=== PATIENT | male | born 1985 | race Two or more races ===

== ENCOUNTER 2020-04-20 09:06 | Inpatient (IN) | payer MEDICAID, OTHER ==
[~2020-04-20] VITALS: Ht 177.8 cm; Wt 97.3 kg
[2020-04-20] MEDS ORDERED: DOXYCYCLINE 100 MG TAB/CAP PO ONE (10:00)
[2020-04-20] MEDS ORDERED: DexAMETHasone SOD PHOS 10MG/1ML VIAL INJ IM ONE (10:00)
[2020-04-20] MEDS ORDERED: ZINC SULFATE 220mg CAP or TAB PO ONE (10:30)
[2020-04-20] MEDS ORDERED: MORPHINE SULF INJ 2 MG/ML SYRINGE 1ML IV PRN (11:00)
[2020-04-20] MEDS ORDERED: HYDROcodone-ACET 5/325MG TAB PO PRN (11:00)
[2020-04-20] MEDS ORDERED: DOCUSATE SOD 100 MG CAP PO PRN (11:00)
[2020-04-20] MEDS ORDERED: TEMAZEPAM 15 MG CAP PO PRN (11:00)
[2020-04-20] MEDS ORDERED: ONDANSETRON HCL 4 MG/2 ML VIAL IV PRN (11:00)
[2020-04-20] MEDS ORDERED: LORazepam 0.5 MG TAB PO PRN (11:00)
[2020-04-20] MEDS ORDERED: ACETAMINOPHEN 325 MG TAB PO PRN (11:00)
[2020-04-20] MEDS ORDERED: ACETAMINOPHEN 500 MG TAB PO PRN (11:00)
[2020-04-20] MEDS ORDERED: GLYB2.5T8 PO (11:26)
[2020-04-20] MEDS ORDERED: CITA10TA70 PO (11:26)
[2020-04-20] MEDS: SODIUM CHLORIDE 0.9% 1,000 ML IV SCH ×2 (11:29→21:59)
[2020-04-20 11:51] LABS: Basophils # (auto) 0 10 ^3/uL (0-0.2); Eosinophils # (auto) 0 10 ^3/uL (0-0.8); Lymphocytes # (auto) 1.2 10 ^3/uL (0.4-5.4)
[2020-04-20 11:53] LABS: Basophils % (auto) 0.2 % (0.0-2.0); Hematocrit 44.6 % (41.0-53.0); Hemoglobin 14.9 g/dL (13.5-17.5); Lymphocytes % (auto) 15.9 % (10.0-50.0); Mean Corpuscular Hemoglobin 27.2 pg (28.0-32.0); Mean Corpuscular Hgb Conc. 33.5 g/dL (32.0-36.0); Mean Corpuscular Volume 81.2 fL (80.0-100.0); Monocytes # (auto) 0.5 10 ^3/uL (0-1.3); Monocytes % (auto) 6.8 % (0.0-12.0); Neutrophils % (auto) 77.1 % (37.0-80.0); Nucleated Red Blood Cells % 0.1 %; Platelet Count (auto) 142 10^3/uL (140-450); Red Blood Cells 5.49 10^6/uL (4.5-5.90); Red Cell Distribution Width 13.5 % (11.8-14.3); White Blood Cell 7.8 10^3/uL (4.4-10.8)
[2020-04-20 12:07] LABS: Albumin 3.2 g/dL (3.4-5.0); Calcium 8.5 mg/dL (8.5-10.1); Magnesium 2.1 mg/dL (1.6-2.6); Potassium 3.9 mmol/L (3.5-5.1)
[2020-04-20 12:11] LABS: BUN/Creatinine Ratio 8.2; Bilirubin, Total 0.5 mg/dL (0.2-1.0); Total Protein 7.7 g/dL (6.4-8.2)
[2020-04-20 13:40] LABS: CRP High Sensitivity 21.93 mg/dL (< 0.3)
[2020-04-20] MEDS: ALBUTEROL SULF HFA 90MCG INH 200DOSE IN SCH ×2 (16:38→19:59)
[2020-04-20 20:35] VITALS: BP 115/71
[2020-04-20] MEDS: DOXYCYCLINE 100 MG TAB/CAP PO SCH (21:59)
[2020-04-21] MEDS: SODIUM CHLORIDE 0.9% 1,000 ML IV SCH (07:34)
[2020-04-21 08:41] LABS: Basophils # (auto) 0 10 ^3/uL (0-0.2); Basophils % (auto) 0.2 % (0.0-2.0); Eosinophils # (auto) 0 10 ^3/uL (0-0.8); Hematocrit 44.7 % (41.0-53.0); Hemoglobin 14.7 g/dL (13.5-17.5); Lymphocytes # (auto) 1.9 10 ^3/uL (0.4-5.4); Lymphocytes % (auto) 14.1 % (10.0-50.0); Mean Corpuscular Hemoglobin 27.2 pg (28.0-32.0); Mean Corpuscular Hgb Conc. 32.8 g/dL (32.0-36.0); Mean Corpuscular Volume 82.9 fL (80.0-100.0); Monocytes # (auto) 0.9 10 ^3/uL (0-1.3); Monocytes % (auto) 6.7 % (0.0-12.0); Neutrophils # (auto) 10.6 10 ^3/uL (1.6-8.6); Nucleated Red Blood Cells % 0.1 %; Platelet Count (auto) 177 10^3/uL (140-450); Red Blood Cells 5.39 10^6/uL (4.5-5.90); Red Cell Distribution Width 13.8 % (11.8-14.3); White Blood Cell 13.4 10^3/uL (4.4-10.8)
[2020-04-21 09:04] LABS: Calcium 8.7 mg/dL (8.5-10.1); Magnesium 2.1 mg/dL (1.6-2.6); Potassium 4.6 mmol/L (3.5-5.1)
[2020-04-21 09:08] LABS: BUN/Creatinine Ratio 18.9; Bilirubin, Total 0.5 mg/dL (0.2-1.0); Total Protein 7.7 g/dL (6.4-8.2)
[2020-04-21] MEDS: ZINC SULFATE 220mg CAP or TAB PO SCH (09:43)
[2020-04-21] MEDS: ASCORBIC ACID 1,000 MG TAB PO SCH (09:43)
[2020-04-21] MEDS: ENOXAPARIN SOD 40 MG/0.4 ML SYRINGE SC SCH (09:43)
[2020-04-21] MEDS: DOXYCYCLINE 100 MG TAB/CAP PO SCH ×2 (09:43→22:40)
[2020-04-21] MEDS ORDERED: CHOLECALCIFEROL (VITD3) 2,000 UNIT CAP PO ONE (11:00)
[2020-04-21] MEDS ORDERED: cefTRIAXone 1GM/50ML D5W 50 ML IV ONE (11:00)
[2020-04-21] MEDS ORDERED: FUROSEMIDE 20 MG/2 ML VIAL IV ONE (11:00)
--- NOTE | 2020-04-21 14:35 | NUR ---
Telemetry admit from [facility] admitted to Telemetry unit after SBAR received. Patient oriented to ABDON LEONARD RN primary RN, unit, room 239, bed, and unit policies regarding patient care and visiting hours. Patient now on continuous telemetry monitoring, tele box #24 and telemetry reading on arrival to unit is sinus rhythm 84. Patient placed on bedside oxygen at 5 LPM, patient continuously removing oxygen stating he thinks its too high, assessed to be 92% after being on room air for ten minutes, will reevaluate oxygen needs, weighed by bedscale and encouraged to call if they need something. All questions and concerns addressed, patient verbalized understanding.
[2020-04-21 15:28] VITALS: BP 117/60
[2020-04-21] MEDS ORDERED: DEXTROSE (50%) 50ML SYRG IV PRN (15:45)
--- NOTE | 2020-04-21 16:38 | NUR ---
COVID POSITIVE CALL FROM [facility], PATIENT IS POSITIVE, CALL TO NOTIFY DR FU, NO NEW ORDERS AT THIS TIME.
[2020-04-21] MEDS: ACCU-CHEK COMFORT CURVE STRIP VI SCH ×2 (17:25→23:30)
[2020-04-21] MEDS: InsuLIN REG 1unit/0.01ml Soln (100units/ml) SC SCH ×2 (18:13→23:30)
--- NOTE | 2020-04-21 19:30 | NUR ---
Opening Shift Note Assumed care of patient awake and alert x4. Patient reports a headache (pain scale 3/10), will medicate patient as ordered by MD. Patient reports mild shortness of breath at rest but more so with excretion. Patient states his shortness of breath has improved since admission. Instructed patient to notify this RN if his shortness of breath gets worse, patient verbalized understanding. Patient is on room air, SPO2: 91% at this time. No sign/symptoms of distress noted or verbalized at this time. Instructed on plan of care and encouraged patient to call for assistance as needed. Bed is locked in lowest position, side rails x 2 are up, call light is within reach.
[2020-04-21] MEDS: ACETAMINOPHEN 325 MG TAB PO PRN (20:03)
[2020-04-21 22:00] VITALS: BP 108/68
[2020-04-21] MEDS: cefTRIAXone 1GM/50ML D5W 50 ML IV SCH (22:40)
[2020-04-21] MEDS: ALBUTEROL SULF HFA 90MCG INH 200DOSE IN SCH (23:11)
[2020-04-21] MEDS: INSULIN LANTUS (GLARGINE) 1 /0.01ml (100units/ml) SC SCH (23:31)
[2020-04-22 04:44] VITALS: BP 115/70
[2020-04-22] MEDS: ACCU-CHEK COMFORT CURVE STRIP VI SCH ×3 (05:42→18:00)
[2020-04-22] MEDS: ACETAMINOPHEN 325 MG TAB PO PRN (05:43)
[2020-04-22] MEDS: InsuLIN REG 1unit/0.01ml Soln (100units/ml) SC SCH ×3 (05:43→18:00)
[2020-04-22] MEDS: ALBUTEROL SULF HFA 90MCG INH 200DOSE IN SCH (06:46)
--- NOTE | 2020-04-22 07:30 | NUR ---
Opening Shift Note Assumed care of patient, awake and alert x4. Patient is on room air, O2 Sat is at 95%. Patient denies pain at this time. Instructed on plan of care and encouraged patient to call for assistance as needed. Bed is locked in lowest position, side rails x 2 are up, and call light is within reach.
[2020-04-22 08:00] VITALS: BP 112/68
[2020-04-22] MEDS: cefTRIAXone 1GM/50ML D5W 50 ML IV SCH (09:37)
[2020-04-22] MEDS: ENOXAPARIN SOD 40 MG/0.4 ML SYRINGE SC SCH (09:38)
[2020-04-22] MEDS: ASCORBIC ACID 1,000 MG TAB PO SCH (09:39)
[2020-04-22] MEDS: DOXYCYCLINE 100 MG TAB/CAP PO SCH (09:40)
[2020-04-22] MEDS: ZINC SULFATE 220mg CAP or TAB PO SCH (09:40)
[2020-04-22] MEDS ORDERED: DexAMETHasone SOD PHOS 10MG/1ML VIAL INJ IV SCH ×2 (10:00)
[2020-04-22] MEDS ORDERED: FUROSEMIDE 20 MG/2 ML VIAL IV SCH (10:00)
[2020-04-22] MEDS ORDERED: CHOLECALCIFEROL (VITD3) 2,000 UNIT CAP PO SCH (10:00)
[2020-04-22] MEDS: INSULIN LANTUS (GLARGINE) 1 /0.01ml (100units/ml) SC SCH (10:00)
[2020-04-22 12:00] VITALS: BP 116/62
[2020-04-22] MEDS ORDERED: ALBUTEROL SULF HFA 90MCG INH 200DOSE IN SCH (14:00)
[2020-04-22] MEDS ORDERED: METF-489 PO (14:42)
[2020-04-22] MEDS ORDERED: CHOL1CAP47 PO (14:42)
[2020-04-22] MEDS ORDERED: ASCO10003 PO (14:42)
[2020-04-22] MEDS ORDERED: ALBUAER3 IN (14:42)
[2020-04-22] MEDS ORDERED: DOX100T PO (14:42)
[2020-04-22] MEDS ORDERED: ZINC50TA7 PO (14:43)
[2020-04-22] MEDS ORDERED: FURO20TA3 PO (14:44)
[2020-04-22] MEDS ORDERED: METH4PAK PO (14:46)
[2020-04-22] MEDS ORDERED: ACET325T82 PO (14:46)
[2020-04-22] MEDS ORDERED: ATOR20TA50 PO (14:50)
[2020-04-22 17:00] VITALS: BP 117/74
[2020-04-22 17:06] VITALS: BP 112/68
--- NOTE | 2020-04-22 19:31 | NUR ---
Discharge instructions given as ordered. Encourage to follow up with PMD as instructed. All questions and concerns addressed. Patient verbalized understanding. IV removed with catheter intact, pressure dressing applied. Telemetry unit returned to ICU. Patient taken to vehicle via wheelchair with all personal belongings, accompanied by staff. Prescriptions electronically sent to pharmacy, pending pickup by patient. No distress noted at time of departure.
== END 2020-04-22 22:27 | disposition home or self-care (01) | DRG 720 ==
LOC: ER 09:06 → TELE 09:07 → TELE-EAST 04-21 15:08
PROVIDERS: ADMIT Hospitalist; ATTEND Internal Medicine Nephrology
DX: A41.89 Other specified sepsis (principal); R65.20 Severe sepsis without septic shock; U07.1 COVID-19; J12.89 Other viral pneumonia; E66.9 Obesity, unspecified; E11.65 Type 2 diabetes mellitus with hyperglycemia; Z68.31 Body mass index [BMI] 31.0-31.9, adult
CPT/HCPCS: 36415; 71045; 80053; 82728; 82962; 83036; 83605; 83615; 83735; 85025; 85379; 86141; 87040; 94640; G0378; J0696; J1100; J1815; J2405